=== PATIENT | female | born 1945 | race Caucasian/White ===

== ENCOUNTER → 2017-12-20 | Outpatient (CLI) | payer MEDICARE, OTHER ==
[~2017-12-20] MED LIST: B2/V1TAB5 PO; CALC-734 PO; CALC-852 PO; DENOSUMAB 60 MG/1 ML SYR SUBQ ONE; LUTE1CAP PO; MULT1CAP59 PO; OMEP-125 PO; OMEP-137 PO
[2017-12-20 11:03] VITALS: BP 115/78
== END ==
LOC: SPU 07:44
PROVIDERS: ATTEND Family Medicine
DX: M81.0 Age-related osteoporosis without current pathological fracture (principal)
CPT/HCPCS: 96372; J0897

== ENCOUNTER → 2017-12-27 | Outpatient (CLI) | payer MEDICARE, OTHER ==
[~2017-12-27] MED LIST changes: -DENOSUMAB 60 MG/1 ML SYR SUBQ ONE
--- NOTE | 2017-12-27 11:10 | RADIOLOGY IMAGING REPORT ---
FACILITY: [facility] - [place] PATIENT NAME: Stephie Huang : 1945 MR: [id number] V: [id number] EXAM DATE: ORDERING PHYSICIAN: NADIA CALDERON TECHNOLOGIST: Location: [facility] Patient: Stephie Huang : 1945 Visit/Account:[id number] Date of Sevice: 12/27/2017 DEXA Scan Clinical history: Postmenopausal osteoporosis. Comparison: DEXA scan from 07/23/2015. LUMBAR SPINE: The bone mineral density (BMD) measured from L1-L4 correlates with a Z-score of -0.2 and a T-score of -2.3 which is osteopenia as defined by the World Health Organization. The corresponding risk of fra cture in the lumbar spine is 4-6 times increased compared with a young adult reference population. T his value has increase by 6.9 % since the prior study. More than 5% change is considered significant . HIP: Bone mineral density (BMD) measured in the LEFT total hip region correlates with a Z-score 0.5 and a T-score of -1.4 which is osteopenia as defined by the World Health Organization. The corresponding r isk of fracture in the hip is 2-3 times increased compared to a young adult reference population. Thi s value has decrease by 0.2 % since the prior study. More than 5% change is considered significant. T score left femoral neck -1.7 Bone mineral density (BMD) measured in the Femoral Neck region measures 0.803 g/cm?. IMPRESSION: 1. Lumbar spine: Osteopenia. There has been 6.9% increase in the bone mineral density since the pre vious exam. 2. Left Total Hip: Osteopenia. There has been 0.2% decrease in the bone mineral density since the p revious exam. 3. Femoral Neck: Bone Mineral Density is 0.803 g/cm? The next DEXA scan of this patient should include the following sites: L1-L4 and the left hip. FRAX? WHO Fracture Risk Assessment Tool link: <http://www.shef.ac.uk/FRAX/tool.jsp?locationValue=9> PLEASE NOTE: 1) The World Health Organization defines low BMD as follows: T-score Normal > -1 Osteopenia < -1 and > -2.5 Osteoporosis < -2.5 without fractures Established osteoporosis < -2.5 with fractures 2) In general, you may wish to consider: Diagnosis Treatment Follow-up DEXA Normal BMD Prevention 2-3 years Osteopenia Prevention/therapy 1-2 years Osteoporosis Therapy Yearly 3) Fracture risk estimated from the T-score is more accurate for vertebral fractures (often spontane ous) than for hip fractures. Report Dictated By: Sailaja Mackay MD at 12/27/2017 11:04 AM Report E-Signed By: Sailaja Mackay MD at 12/27/2017 11:06 AM WSN:[email or web address]
== END ==
LOC: RAD 01:34
PROVIDERS: ATTEND Family Medicine
DX: Z13.820 Encounter for screening for osteoporosis (principal); M85.89 Other specified disorders of bone density and structure, multiple sites
CPT/HCPCS: 77080

== ENCOUNTER → 2018-02-07 | Outpatient (CLI) | payer MEDICARE, OTHER ==
--- NOTE | 2018-02-07 16:34 | RADIOLOGY IMAGING REPORT ---
FACILITY: [facility] [place] PATIENT NAME: HANNAH SUTTON : [id number] MR: [id number] V: [id number] EXAM DATE: ORDERING PHYSICIAN: NADIA CALDERON TECHNOLOGIST: Sanjuana Kaufman PROCEDURE:BILATERAL DIGITAL SCREENING MAMMOGRAM WITH CAD ASSISTED INTERPRETATION & 3D TOMOSYNTHESIS COMPARISON:Prior mammograms 01/18/17, 07/23/15, 06/20/13, 05/17/11. INDICATIONS:SCREENING FINDINGS: Dense heterogeneous fibroglandular tissue is seen throughout the breasts. The parenchymal pattern has remained stable allowing for difference in mammographic technique & patient positioning. There is no evidence of malignant appearing mass, malignant appearing calcifications or other secondary sign of malignancy in either breast. DIAGNOSTIC CATEGORY 1--NEGATIVE. RECOMMENDATIONS: ROUTINE MAMMOGRAM AND CLINICAL EVALUATION. IMPRESSION: BIRADS 1: Negative. No significant abnormality is seen. Dictated by: Sailaja Mackay M.D. on 02/07/2018 at 14:40 Transcribed by: YEN on 02/07/2018 at 15:24 Approved by: Sailaja Mackay M.D. on 02/07/2018 at 16:32 [facility]
== END ==
LOC: MAMO 00:29
PROVIDERS: ATTEND Family Medicine
DX: Z12.31 Encounter for screening mammogram for malignant neoplasm of breast (principal)
CPT/HCPCS: 77063; 77067

== ENCOUNTER → 2019-01-02 | Outpatient (CLI) | payer MEDICARE, OTHER ==
[~2019-01-02] MED LIST changes: +DENOSUMAB 60 MG/1 ML SYR SUBQ ONE
[2019-01-02 09:01] VITALS: BP 135/80
== END ==
LOC: SPU 08:29
PROVIDERS: ATTEND Family Medicine
DX: M81.0 Age-related osteoporosis without current pathological fracture (principal)
CPT/HCPCS: 96372; J0897

== ENCOUNTER → 2019-01-17 | Outpatient (CLI) | payer MEDICARE, OTHER ==
[~2019-01-17] MED LIST changes: -DENOSUMAB 60 MG/1 ML SYR SUBQ ONE
--- NOTE | 2019-01-17 10:22 | RADIOLOGY IMAGING REPORT ---
FACILITY: [facility] PATIENT NAME: Stephie Huang : 1945 MR: [id number] V: [id number] EXAM DATE: ORDERING PHYSICIAN: NADIA CALDERON TECHNOLOGIST: Location: [facility] Patient: Stephie Huang : 1945 Visit/Account:[id number] Date of Sevice: 01/17/2019 DEXA Scan Clinical history: Age related osteoporosis. Comparison: DEXA scan from 12/27/2017. LUMBAR SPINE: The bone mineral density (BMD) measured from L1-L4 correlates with a Z-score of -0.8 and a T-score of -2.8 which is osteoporosis as defined by the World Health Organization. The corresponding risk of f racture in the lumbar spine is 68 times increased compared with a young adult reference population. This value has decrease by 7.4 % since the prior study. More than 5% change is considered significan t. HIP: Bone mineral density (BMD) measured in the LEFT total hip region correlates with a Z-score 0.4 and a T-score of -1.5 which is osteopenia as defined by the World Health Organization. The corresponding r isk of fracture in the hip is 3 times increased compared to a young adult reference population. This value has decreased by 1.6 % since the prior study. More than 5% change is considered significant. T score left femoral neck -1.7 Bone mineral density (BMD) measured in the Femoral Neck region measures 0.796 g/cm?. IMPRESSION: 1. Lumbar spine: Osteoporosis. There has been 7.4% decrease in the bone mineral density since the p revious exam. 2. Left Total Hip: Osteopenia. There has been 1.6% decrease in the bone mineral density since the p revious exam. 3. Femoral Neck: Bone Mineral Density is 0.796 g/cm? The next DEXA scan of this patient should include the following sites: L1-L4 and the left hip. FRAX? WHO Fracture Risk Assessment Tool link: <http://www.shef.ac.uk/FRAX/tool.jsp?locationValue=9> PLEASE NOTE: 1) The World Health Organization defines low BMD as follows: T-score Normal > -1 Osteopenia < -1 and > -2.5 Osteoporosis < -2.5 without fractures Established osteoporosis < -2.5 with fractures 2) In general, you may wish to consider: Diagnosis Treatment Follow-up DEXA Normal BMD Prevention 2-3 years Osteopenia Prevention/therapy 1-2 years Osteoporosis Therapy Yearly 3) Fracture risk estimated from the T-score is more accurate for vertebral fractures (often spontane ous) than for hip fractures. Report Dictated By: Sailaja Mackay MD at 01/17/2019 10:15 AM Report E-Signed By: Sailaja Mackay MD at 01/17/2019 10:17 AM BECCAN:[email or web address]
== END ==
LOC: RAD 02:11
PROVIDERS: ATTEND Family Medicine
DX: M81.0 Age-related osteoporosis without current pathological fracture (principal); M85.852 Other specified disorders of bone density and structure, left thigh
CPT/HCPCS: 77080

== ENCOUNTER → 2019-02-18 | Outpatient (CLI) | payer MEDICARE, OTHER ==
[~2019-02-18] MED LIST changes: -OMEP-125 PO; +OMEP-126 PO
--- NOTE | 2019-02-19 09:21 | RADIOLOGY IMAGING REPORT ---
[facility] PATIENT NAME: HANNAH SUTTON : [id number] MR: [id number] V: [id number] EXAM DATE: ORDERING PHYSICIAN: NADIA CALDERON TECHNOLOGIST: Sanjuana Kaufman PROCEDURE: BILATERAL DIGITAL SCREENING MAMMOGRAM WITH CAD ASSISTED INTERPRETATION & 3D TOMOSYNTHESIS. REASON FOR STUDY: Screening. FAMILY HISTORY OF BREAST CANCER: None. BREAST PROCEDURES/TREATMENTS: None. COMPARISON: 02/07/18, 01/18/17, 07/23/15, 06/20/13. VIEWS OBTAINED: Bilateral 2D & 3D full field CC & MLO projections & 2D full field Right XCC projection. BREAST DENSITY: The breasts are heterogeneously dense which can obscure small masses. MAMMOGRAM FINDINGS: The parenchymal pattern has remained stable allowing for difference in mammographic technique & patient positioning. IMPRESSION: BIRADS 1: Negative. DIAGNOSTIC CATEGORY 1--NEGATIVE. RECOMMENDATIONS: ROUTINE MAMMOGRAM AND CLINICAL EVALUATION. Dictated by: Sailaja Mackay M.D. on 02/18/2019 at 17:31 Transcribed by: YEN on 02/19/2019 at 8:29 Approved by: Sailaja Mackay M.D. on 02/19/2019 at 9:17 [facility]
== END ==
LOC: MAMO 00:40
PROVIDERS: ATTEND Family Medicine
DX: Z12.31 Encounter for screening mammogram for malignant neoplasm of breast (principal)
CPT/HCPCS: 77063; 77067